=== PATIENT | female | born 1940 | race Two or more races ===

== ENCOUNTER 2017-01-25 11:48 | Emergency (ER) | payer MEDICARE, MEDICAID ==
[~2017-01-25] VITALS: Ht 152.4 cm; Wt 40.0 kg
[~2017-01-25 11:48] MED LIST: LOSA50TA20 PO; OMEP20TA80 PO; ROSU10TA PO; WARF1TAB46 PO; WARF2TAB57 PO
[2017-01-25] MEDS ORDERED: KETOROLAC 60MG/2ML VIAL IM ONE (12:45)
[2017-01-25 12:55] LABS: BASOPHILS % 0.8 % (0.0-2.0); EOSINOPHILS % 3.7 % (0.0-5.0); HEMATOCRIT. 39.5 % (36.0-48.0); HEMOGLOBIN. 13.4 g/dL (12.0-16.0); MEAN CORPUSCULAR HEMOGLOBIN 30.1 pg (28.0-32.0); MEAN CORPUSCULAR HGB CONC 33.9 g/dL (31.0-37.0); MEAN CORPUSCULAR VOLUME 88.9 fL (81.0-99.0); MEAN PLATELET VOLUME 7.6 fl (7.4-10.4); MONOCYTES % 10.5 % (2.0-8.0); PLATELET 191 x1000/uL (130-400); RED BLOOD CELL COUNT 4.44 mill/uL (4.2-5.4); RED CELL DISTRIBUTION WIDTH 13.8 % (11.6-14.6); WHITE BLOOD COUNT 7.3 x1000/uL (4.5-11.0)
[2017-01-25 13:03] LABS: INR 2.4; PROTHROMBIN TIME 24.5 sec
[2017-01-25 13:08] LABS: ANION GAP 12; CALCIUM 8.9 mg/dL (8.5-10.1); CARBON DIOXIDE 26 mEq/L (21-32); CHLORIDE 109 mEq/L (98-107); INDEX HEMOLYSI 2 (1-3); INDEX ICTERIC 1 (1-4); INDEX LIPEMIC 1 (1-3); UREA NITROGEN BLOOD 17 mg/dL (7-21); eGFR > 60 mL/min (>60)
[2017-01-25 17:18] VITALS: BP 144/78
== END 2017-01-25 17:24 | disposition home or self-care (01) ==
LOC: ER 14:34
DX: R51 Headache (principal); I10 Essential (primary) hypertension; K21.9 Gastro-esophageal reflux disease without esophagitis; Z98.42 Cataract extraction status, left eye; Z88.6 Allergy status to analgesic agent; Z79.01 Long term (current) use of anticoagulants; Z79.899 Other long term (current) drug therapy; Z95.1 Presence of aortocoronary bypass graft; Z95.0 Presence of cardiac pacemaker
CPT/HCPCS: 36415; 70450; 80048; 85025; 85610; 96372; 99285; J1885

== ENCOUNTER 2017-02-05 19:09 | Emergency (ER) | payer MEDICARE, MEDICAID ==
[~2017-02-05] VITALS: Ht 152.4 cm; Wt 43.3 kg
[2017-02-05] MEDS ORDERED: ACETAMINOPHEN 500MG TABLET PO ONE (22:45)
[2017-02-06] MEDS ORDERED: BACITRACIN ZINC OINT UDPKT TOP ONE (01:15)
[2017-02-06 01:40] VITALS: BP 175/78
== END 2017-02-06 01:45 | disposition home or self-care (01) ==
LOC: ER 19:09
DX: S00.83XA Contusion of other part of head, initial encounter (principal); S93.401A Sprain of unspecified ligament of right ankle, initial encounter; R51 Headache; M54.2 Cervicalgia; M79.642 Pain in left hand; M79.641 Pain in right hand; W18.39XA Other fall on same level, initial encounter; Y93.01 Activity, walking, marching and hiking; T14.8 Other injury of unspecified body region; I10 Essential (primary) hypertension; E78.00 Pure hypercholesterolemia, unspecified; Y92.410 Unspecified street and highway as the place of occurrence of the external cause; Z88.6 Allergy status to analgesic agent; Z79.01 Long term (current) use of anticoagulants; Z79.899 Other long term (current) drug therapy; Z95.0 Presence of cardiac pacemaker; Z95.1 Presence of aortocoronary bypass graft
CPT/HCPCS: 70450; 70486; 72125; 73110; 73130; 73590; 73610; 99284

== ENCOUNTER 2017-03-26 18:04 | Emergency (ER) | payer MEDICARE, MEDICAID ==
[~2017-03-26] VITALS: Ht 152.4 cm; Wt 52.0 kg
[2017-03-26 19:51] LABS: INR 2.4; PROTHROMBIN TIME 24.4 sec
[2017-03-26 19:54] LABS: BASOPHILS % 0.8 % (0.0-2.0); HEMATOCRIT. 40.4 % (36.0-48.0); HEMOGLOBIN. 13.8 g/dL (12.0-16.0); LYMPHOCYTES % 21.5 % (20.0-50.0); MEAN CORPUSCULAR HEMOGLOBIN 30.4 pg (28.0-32.0); MEAN CORPUSCULAR VOLUME 88.7 fL (81.0-99.0); MEAN PLATELET VOLUME 8.2 fl (7.4-10.4); MONOCYTES % 12.3 % (2.0-8.0); NEUTROPHILS % 60.4 % (40.0-76.0); PLATELET 209 x1000/uL (130-400); RED BLOOD CELL COUNT 4.55 mill/uL (4.2-5.4); RED CELL DISTRIBUTION WIDTH 13.6 % (11.6-14.6)
[2017-03-26 20:01] LABS: CARBON DIOXIDE 26 mEq/L (21-32); CHLORIDE 109 mEq/L (98-107); TROPONIN I < 0.02 ng/mL (0.00-0.04)
[2017-03-26 20:48] VITALS: BP 146/64
[2017-03-26] MEDS ORDERED: FUROSEMIDE 20MG/2ML VIAL IVP ONE (23:15)
== END 2017-03-26 23:55 | disposition home or self-care (01) ==
LOC: ER 20:39
DX: I50.9 Heart failure, unspecified (principal); R60.9 Edema, unspecified; I10 Essential (primary) hypertension; E78.00 Pure hypercholesterolemia, unspecified; Z95.0 Presence of cardiac pacemaker; Z79.01 Long term (current) use of anticoagulants; Z98.890 Other specified postprocedural states
CPT/HCPCS: 36415; 71010; 80053; 83880; 84484; 85025; 85610; 93005; 93970; 96374; 99285; J1940; J7030

== ENCOUNTER 2017-06-05 16:33 | Emergency (ER) | payer MEDICARE, MEDICAID ==
[~2017-06-05] VITALS: Ht 152.4 cm; Wt 45.0 kg
[~2017-06-05 16:33] MED LIST changes: +OMEP20TA2 PO; -OMEP20TA80 PO
[2017-06-05 18:59] VITALS: BP 140/62
[2017-06-05 20:37] LABS: BASOPHILS % 0.6 % (0.0-2.0); EOSINOPHILS % 0.7 % (0.0-5.0); HEMATOCRIT. 40.9 % (36.0-48.0); HEMOGLOBIN. 13.9 g/dL (12.0-16.0); LYMPHOCYTES % 10.1 % (20.0-50.0); MEAN CORPUSCULAR HEMOGLOBIN 29.5 pg (28.0-32.0); MEAN CORPUSCULAR VOLUME 86.9 fL (81.0-99.0); MEAN PLATELET VOLUME 8.2 fl (7.4-10.4); NEUTROPHILS % 76.6 % (40.0-76.0); PLATELET 157 x1000/uL (130-400); RED BLOOD CELL COUNT 4.71 mill/uL (4.2-5.4); RED CELL DISTRIBUTION WIDTH 14.7 % (11.6-14.6)
[2017-06-05 20:44] LABS: CHLORIDE 109 mEq/L (98-107)
[2017-06-05 20:47] LABS: CARBON DIOXIDE 25 mEq/L (21-32)
[2017-06-05 20:51] LABS: INR 3.7; PARTIAL THROMBOPLASTIN TIME 44.6 sec (23.4-31.0); PROTHROMBIN TIME 38.5 sec (9.4-11.6)
[2017-06-05] MEDS ORDERED: ACETAMINOPHEN 650MG/20.3ML UDC PO ONE (23:00)
== END 2017-06-05 23:38 | disposition home or self-care (01) ==
LOC: ER 18:37
DX: K62.5 Hemorrhage of anus and rectum (principal); I10 Essential (primary) hypertension; R51 Headache; E78.00 Pure hypercholesterolemia, unspecified; Z95.0 Presence of cardiac pacemaker; Z79.01 Long term (current) use of anticoagulants
CPT/HCPCS: 36415; 70450; 80053; 85025; 85610; 85730; 99285

== ENCOUNTER 2018-10-17 10:33 | Emergency (ER) | payer MEDICARE, MEDICAID ==
[~2018-10-17] VITALS: Ht 137.2 cm; Wt 46.0 kg
[2018-10-17] MEDS ORDERED: ACETAMINOPHEN 325MG TABLET PO STA (11:42)
[2018-10-17] MEDS ORDERED: SODIUM CHLORIDE 0.9% 1,000 ML IV ONE (11:42)
[2018-10-17 12:20] LABS: CLARITY URINE CLEAR (CLEAR); COLOR URINE YELLOW (YELLOW); KETONES URINE NEGATIVE (NEGATIVE); LEUKOCYTE ESTERASE URINE NEGATIVE (NEGATIVE); NITRITE URINE NEGATIVE (NEGATIVE); OCCULT BLOOD URINE NEGATIVE (NEGATIVE); PROTEIN URINE NEGATIVE (NEGATIVE); SPECIFIC GRAVITY URINE 1.005 (1.005-1.030); UROBILINOGEN URINE 0.2 E.U./dL (0.2-1.0)
[2018-10-17 12:31] LABS: BASOPHILS % 1.1 % (0.0-2.0); EOSINOPHILS % 3.5 % (0.0-5.0); HEMATOCRIT. 43.2 % (36.0-48.0); HEMOGLOBIN. 14.5 g/dL (12.0-16.0); MEAN CORPUSCULAR HEMOGLOBIN 30.3 pg (28.0-32.0); MEAN CORPUSCULAR VOLUME 90.5 fL (81.0-99.0); MEAN PLATELET VOLUME 8.8 fl (7.4-10.4); MONOCYTES % 13.1 % (2.0-8.0); NEUTROPHILS % 63.3 % (40.0-76.0); PLATELET 211 x1000/uL (130-400); RED BLOOD CELL COUNT 4.78 mill/uL (4.2-5.4); RED CELL DISTRIBUTION WIDTH 14.5 % (11.6-14.6)
[2018-10-17 12:36] LABS: CHLORIDE 110 mEq/L (98-107)
[2018-10-17 12:38] LABS: INR 2.3; PROTHROMBIN TIME 22.7 sec (9.1-11.1)
[2018-10-17 13:30] VITALS: BP 148/61
== END 2018-10-17 13:44 | disposition home or self-care (01) ==
LOC: ER 11:12
DX: M54.9 Dorsalgia, unspecified (principal); R53.1 Weakness; E78.00 Pure hypercholesterolemia, unspecified; R51 Headache; R10.84 Generalized abdominal pain; R11.0 Nausea; Z86.79 Personal history of other diseases of the circulatory system; I10 Essential (primary) hypertension; Z95.1 Presence of aortocoronary bypass graft; Z95.0 Presence of cardiac pacemaker; Z88.6 Allergy status to analgesic agent
CPT/HCPCS: 36415; 71045; 80053; 81003; 83605; 84145; 84484; 85025; 85610; 87040; 87086; 87804; 93005; 99284; J7030

== ENCOUNTER 2018-11-26 11:15 | Emergency (ER) | payer MEDICARE, MEDICAID ==
[~2018-11-26] VITALS: Ht 152.4 cm; Wt 45.0 kg
[2018-11-26 12:22] VITALS: BP 147/88
== END 2018-11-26 18:01 | disposition left against medical advice (07) ==
LOC: ER 11:15
DX: Z53.21 Procedure and treatment not carried out due to patient leaving prior to being seen by health care provider (principal); I10 Essential (primary) hypertension; Z88.6 Allergy status to analgesic agent; Z98.890 Other specified postprocedural states

== ENCOUNTER 2018-11-27 15:44 | Emergency (ER) | payer MEDICARE, MEDICAID ==
[~2018-11-27] VITALS: Ht 152.4 cm; Wt 59.0 kg
[2018-11-27 18:06] LABS: BASOPHILS % 0.4 % (0.0-2.0); EOSINOPHILS % 2.1 % (0.0-5.0); LYMPHOCYTES % 14.6 % (20.0-50.0); MEAN CORPUSCULAR HEMOGLOBIN 29.6 pg (28.0-32.0); MEAN CORPUSCULAR VOLUME 88.8 fL (81.0-99.0); MEAN PLATELET VOLUME 8.6 fl (7.4-10.4); MONOCYTES % 12.4 % (2.0-8.0); NEUTROPHILS % 70.5 % (40.0-76.0); PLATELET 204 x1000/uL (130-400); RED BLOOD CELL COUNT 5.07 mill/uL (4.2-5.4); RED CELL DISTRIBUTION WIDTH 13.9 % (11.6-14.6)
[2018-11-27 18:09] LABS: CHLORIDE 104 mEq/L (98-107)
[2018-11-27 19:29] VITALS: BP 127/75
== END 2018-11-27 19:54 | disposition home or self-care (01) ==
LOC: ER 16:33
DX: B34.9 Viral infection, unspecified (principal); I11.0 Hypertensive heart disease with heart failure; I50.9 Heart failure, unspecified; I25.10 Atherosclerotic heart disease of native coronary artery without angina pectoris; Z88.6 Allergy status to analgesic agent; Z95.0 Presence of cardiac pacemaker; Z95.1 Presence of aortocoronary bypass graft; Z79.01 Long term (current) use of anticoagulants
CPT/HCPCS: 36415; 71045; 83880; 84484; 93005; 99284

== ENCOUNTER 2019-03-05 13:37 | Inpatient (IN) | payer MEDICARE, MEDICAID ==
[~2019-03-05] VITALS: Ht 134.6 cm; Wt 47.2 kg
[~2019-03-05 13:37] MED LIST changes: +CRES10 PO; -LOSA50TA20 PO; +LOSA50TA41 PO; -ROSU10TA PO
[2019-03-05 14:50] LABS: HEMATOCRIT. 41.9 % (36.0-48.0); HEMOGLOBIN. 14.4 g/dL (12.0-16.0); MEAN CORPUSCULAR HEMOGLOBIN 29.8 pg (28.0-32.0); MEAN CORPUSCULAR VOLUME 86.6 fL (81.0-99.0); PLATELET 187 x1000/uL (130-400); RED BLOOD CELL COUNT 4.84 mill/uL (4.2-5.4); RED CELL DISTRIBUTION WIDTH 14.6 % (11.6-14.6)
[2019-03-05 14:53] LABS: CHLORIDE 106 mEq/L (98-107)
[2019-03-05 15:01] LABS: INR 3.1; PARTIAL THROMBOPLASTIN TIME 44.8 sec (23.4-31.0)
[2019-03-05 15:24] LABS: PLATELET ESTIMATE NORMAL
[2019-03-05 15:29] LABS: CLARITY URINE CLEAR (CLEAR); COLOR URINE YELLOW (YELLOW); KETONES URINE NEGATIVE (NEGATIVE); LEUKOCYTE ESTERASE URINE NEGATIVE (NEGATIVE); NITRITE URINE NEGATIVE (NEGATIVE); OCCULT BLOOD URINE NEGATIVE (NEGATIVE); PROTEIN URINE NEGATIVE (NEGATIVE); SPECIFIC GRAVITY URINE 1.007 (1.005-1.030); UROBILINOGEN URINE 0.2 E.U./dL (0.2-1.0)
[2019-03-05] MEDS ORDERED: ACETAMINOPHEN 325MG TABLET PO ONE (15:30)
[2019-03-05] MEDS ORDERED: POTASSIUM CHLORIDE 20MEQ TABLET SR PO ONE (16:30)
[2019-03-05] MEDS ORDERED: FUROSEMIDE 20MG/2ML VIAL IVP ONE (16:30)
[2019-03-05 22:15] VITALS: BP 142/58
[2019-03-05] MEDS ORDERED: DOCUSATE SODIUM 100MG CAPSULE PO PRN (22:45)
[2019-03-05] MEDS ORDERED: CLONIDINE 0.1MG TABLET PO PRN (22:45)
[2019-03-05] MEDS ORDERED: DIPHENHYDRAMINE 50MG/ML VIAL IV PRN (22:45)
[2019-03-05] MEDS ORDERED: ONDANSETRON HCL 4MG/2ML INJ IV PRN (22:45)
[2019-03-05] MEDS ORDERED: NA PHOS,M-B/NA PHOS,DI-BA ENEMA 118ML PR PRN (22:45)
[2019-03-05] MEDS ORDERED: ACETAMINOPHEN 325MG TABLET PO PRN (22:45)
[2019-03-05] MEDS ORDERED: GUAIFENESIN 200MG/10ML SUGAR FREE UDC PO PRN (22:45)
[2019-03-05] MEDS ORDERED: DOXA4TAB3 PO (22:54)
[2019-03-05] MEDS ORDERED: AMLO5TAB88 PO (22:54)
[2019-03-05] MEDS ORDERED: HYDR25TA PO (22:54)
[2019-03-06] MEDS: DEXT 5%/0.45% NACL 1000ML 1,000 ML IV SCH ×2 (00:04→21:00)
[2019-03-06 04:00] VITALS: BP 127/58
[2019-03-06 06:06] LABS: HEMATOCRIT. 39.9 % (36.0-48.0); HEMOGLOBIN. 13.7 g/dL (12.0-16.0); MEAN CORPUSCULAR HEMOGLOBIN 29.7 pg (28.0-32.0); MEAN CORPUSCULAR VOLUME 86.4 fL (81.0-99.0); MEAN PLATELET VOLUME 8.5 fl (7.4-10.4); PLATELET 192 x1000/uL (130-400); RED BLOOD CELL COUNT 4.61 mill/uL (4.2-5.4); RED CELL DISTRIBUTION WIDTH 14.6 % (11.6-14.6)
[2019-03-06 06:13] LABS: CLARITY URINE CLEAR (CLEAR); COLOR URINE YELLOW (YELLOW); KETONES URINE NEGATIVE (NEGATIVE); LEUKOCYTE ESTERASE URINE TRACE (NEGATIVE); NITRITE URINE NEGATIVE (NEGATIVE); OCCULT BLOOD URINE NEGATIVE (NEGATIVE); PH URINE 5.5 (4.5-8.0); PROTEIN URINE NEGATIVE (NEGATIVE); SPECIFIC GRAVITY URINE 1.014 (1.005-1.030); UROBILINOGEN URINE 0.2 E.U./dL (0.2-1.0)
[2019-03-06 06:36] LABS: CHLORIDE 107 mEq/L (98-107)
[2019-03-06 08:00] VITALS: BP 134/60
[2019-03-06 08:54] LABS: BG BASE EXCESS -1.2 mmol/L (-2.0-2.0); BG CARBOXYHEMOGLOBIN 0.6 % (0.5-1.5); BG DEOXYHEMOGLOBIN 2.5 % (0.0-5.0); BG FRACTION INSPIRED OXYGEN 21; BG HCO3 ACT 22.5 mmol/L (22.0-26.0); BG METHEMOGLOBIN 0.2 % (0.0-1.5); BG OXYGEN SATURATION 97.5 % (92.0-98.5); BG OXYHEMOGLOBIN 96.7 % (94.0-97.0); BG PH 7.426 (7.350-7.450); BG PO2 99.4 mmHg (75.0-100.0); BG SAMPLE SITE LEFT BRACHIAL; BG TOTAL HEMOGLOBIN 14.5 g/dL (12.0-18.0); BG VENT MODE ROOM AIR
[2019-03-06] MEDS: LOSARTAN POTASSIUM 50 MG TABLET PO SCH (11:26)
[2019-03-06] MEDS: AMLODIPINE 5MG TABLET PO SCH (11:27)
[2019-03-06 12:00] VITALS: BP_SYST 134; BP_SYST 136; BP_DIAS 68; BP_DIAS 69
[2019-03-06 12:17] LABS: PLATELET ESTIMATE NORMAL
[2019-03-06 16:00] VITALS: BP 115/49
[2019-03-06] MEDS ORDERED: MAGNESIUM/ALUMINUM HYDROXIDE/SIMETHICONE 30ML UDC PO PRN (19:30)
[2019-03-06 20:00] VITALS: BP 114/55
[2019-03-06] MEDS: WARFARIN SODIUM 2MG TABLET PO SCH (20:59)
[2019-03-06] MEDS: DOXAZOSIN MESYLATE 4MG TABLET PO SCH (21:00)
[2019-03-07] VITALS: BP 118/77
[2019-03-07 04:00] VITALS: BP 123/51
[2019-03-07 04:46] LABS: CHLORIDE 109 mEq/L (98-107)
[2019-03-07 05:16] LABS: PROTHROMBIN TIME 29.8 sec (9.6-11.0)
[2019-03-07 06:06] LABS: BASOPHILS % 0.9 % (0.0-2.0); EOSINOPHILS % 6.5 % (0.0-5.0); HEMATOCRIT. 40.1 % (36.0-48.0); HEMOGLOBIN. 13.6 g/dL (12.0-16.0); LYMPHOCYTES % 19.2 % (20.0-50.0); MEAN CORPUSCULAR HEMOGLOBIN 29.7 pg (28.0-32.0); MEAN CORPUSCULAR VOLUME 87.8 fL (81.0-99.0); MEAN PLATELET VOLUME 8.6 fl (7.4-10.4); NEUTROPHILS % 59.4 % (40.0-76.0); PLATELET 198 x1000/uL (130-400); RED BLOOD CELL COUNT 4.57 mill/uL (4.2-5.4); RED CELL DISTRIBUTION WIDTH 14.5 % (11.6-14.6)
[2019-03-07] MEDS: OMEPRAZOLE 20MG CAPSULE EXTENDED RELEASE PO SCH (06:55)
[2019-03-07 08:00] VITALS: BP_SYST 116; BP_SYST 134; BP_DIAS 56; BP_DIAS 7
[2019-03-07] MEDS: LOSARTAN POTASSIUM 50 MG TABLET PO SCH (09:03)
[2019-03-07] MEDS: DOCUSATE SODIUM 100MG CAPSULE PO SCH (09:03)
[2019-03-07] MEDS: AMLODIPINE 5MG TABLET PO SCH (09:03)
[2019-03-07] MEDS: DEXT 5%/0.45% NACL 1000ML 1,000 ML IV SCH (09:04)
[2019-03-07 12:00] VITALS: BP 131/67
[2019-03-07 16:00] VITALS: BP 126/44
[2019-03-07] MEDS: WARFARIN SODIUM 2MG TABLET PO SCH (18:50)
[2019-03-07 20:20] VITALS: BP 127/46
[2019-03-07] MEDS: DOXAZOSIN MESYLATE 4MG TABLET PO SCH (20:59)
[2019-03-08 00:16] VITALS: BP 113/50
[2019-03-08 04:00] VITALS: BP 134/59
[2019-03-08 06:47] LABS: INR 2.9; PROTHROMBIN TIME 28.4 sec (9.6-11.0)
[2019-03-08] MEDS: OMEPRAZOLE 20MG CAPSULE EXTENDED RELEASE PO SCH (06:55)
[2019-03-08 06:59] LABS: BASOPHILS % 0.9 % (0.0-2.0); EOSINOPHILS % 5.8 % (0.0-5.0); HEMATOCRIT. 38.5 % (36.0-48.0); HEMOGLOBIN. 13.1 g/dL (12.0-16.0); LYMPHOCYTES % 21.9 % (20.0-50.0); MEAN CORPUSCULAR HEMOGLOBIN 29.6 pg (28.0-32.0); MEAN PLATELET VOLUME 8.7 fl (7.4-10.4); MONOCYTES % 12.2 % (2.0-8.0); NEUTROPHILS % 59.2 % (40.0-76.0); PLATELET 190 x1000/uL (130-400); RED BLOOD CELL COUNT 4.43 mill/uL (4.2-5.4); RED CELL DISTRIBUTION WIDTH 14.8 % (11.6-14.6)
[2019-03-08 07:06] LABS: CHLORIDE 111 mEq/L (98-107)
[2019-03-08 07:19] LABS: PHOSPHORUS 2.7 mg/dL (2.5-4.9)
[2019-03-08] MEDS: LOSARTAN POTASSIUM 50 MG TABLET PO SCH (09:14)
[2019-03-08] MEDS: AMLODIPINE 5MG TABLET PO SCH (09:14)
[2019-03-08] MEDS: DOCUSATE SODIUM 100MG CAPSULE PO SCH (09:15)
[2019-03-08 10:48] VITALS: BP 130/46
== END 2019-03-08 11:43 | disposition home or self-care (01) | DRG 392 ==
LOC: ER 13:37 → 8WST 16:26 → EDBEDREQ 16:29 → EDBEDREQTM 16:29 → ENRESERV 21:01
PROVIDERS: ADMIT Internal Medicine Nephrology; ATTEND Internal Medicine Nephrology
DX: K52.9 Noninfective gastroenteritis and colitis, unspecified (principal); R51 Headache; E78.5 Hyperlipidemia, unspecified; I11.0 Hypertensive heart disease with heart failure; I50.9 Heart failure, unspecified; I25.10 Atherosclerotic heart disease of native coronary artery without angina pectoris; I48.2 Chronic atrial fibrillation; J06.9 Acute upper respiratory infection, unspecified; Z79.01 Long term (current) use of anticoagulants; Z79.899 Other long term (current) drug therapy; Z86.73 Personal history of transient ischemic attack (TIA), and cerebral infarction without residual deficits; Z95.0 Presence of cardiac pacemaker; Z95.1 Presence of aortocoronary bypass graft; Z95.2 Presence of prosthetic heart valve; Z88.6 Allergy status to analgesic agent; Z88.8 Allergy status to other drugs, medicaments and biological substances
CPT/HCPCS: 36415; 36600; 71045; 80048; 82270; 82375; 82805; 83735; 83880; 84100; 84484; 87015; 87045; 87427; 87449; 87493; 87804; 89055; 93005; 93306; 97161; 99285; C1893; J1940